=== PATIENT | male | born 1985 | race American Indian/Alaskan Native ===

== ENCOUNTER 2017-05-26 08:41 | Emergency (ER) | payer MEDICAID, OTHER ==
--- NOTE | 2017-05-26 09:23 | C.PDOC ---
History Of Present Illness 31 yr old male presents to the ER with complaints of right lower back molar pain for the past 1 week. Patient reports he is s/p root canal, states "it was never completed due to insurance reasons". Patient reports of temporary cap on tooth but states a piece broke off 1 week ago and now has persistent pain. Patient is also complaining of dysuria and perianal burning for the past several days. Admits to unprotected sex with anal sex and had similar STD concern on 10/2016, s/p Rocephin and Azithromax. Patient is concerned about STD with partner. Patient denies fever, throat swelling, mouth swelling, nausea, vomiting, abdominal pain, constipation, weakness or numbness. R BACK LOWER MOLAR PAIN X 1 WK. S/P ROOT CANAL "BUT IT WAS NEVER COMPLETED DUE TO INSURANCE REASONS". PT W TEMP CAP ON TOOTH, PIECE BROKE OFF 1 WEEK AGO NOW W PERSIST PAIN. NO SWELLING, FEVER. ALSO CO DYSURIA AND PERIANAL BURNING X SEV DAYS. +UNPROTECTED SEX W ANAL SEX. SIM STD CONCERN 10/2016 SP ROCEPHIN AND AZITHROMAX. PS +CONCERN FOR STD W PARTNER. NO LESIONS, DC. EXAM NAD HEENT +R 1 MOLAR W TEMP CAP, MISSING PIECE. NO ABSCESS. +LOCAL TEND. NO FACIAL SWELL CIRCUM NO LESIONS, DC. RECTAL EXT EXAM NO LESIONS, REDNESS. MDM UA, TX FOR STD. ADVISED NEED FOR STD CLINIC OR PMD FU FOR OTHER STD TESTING. SAFE SEX PRACTICES INSTRUCTED. ABX, PAIN RX FU DENTIST Time Seen by Provider: 05/26/17 09:22 Chief Complaint (Nursing): Dental Pain History Per: Patient History/Exam Limitations: no limitations Onset/Duration Of Symptoms: Days Past Medical History Reviewed: Historical Data, Nursing Documentation, Vital Signs Vital Signs: Last Vital Signs Temp 98.1 F 05/26/17 08:47 Pulse 69 05/26/17 08:47 Resp 14 05/26/17 08:47 BP 124/81 05/26/17 08:47 Pulse Ox 97 05/26/17 10:26 - Medical History PMH: Asthma, Sexually Transmitted Disease Family History: States: No Known Family Hx - Social History Hx Tobacco Use: No Hx Alcohol Use: Yes Hx Substance Use: No - Immunization History Hx Influenza Vaccination: No Review Of Systems Except As Marked, All Systems Reviewed And Found Negative. Constitutional: Negative for: Fever ENT: Positive for: Other ((+) Right lower molar pain ). Negative for: Mouth Swelling Gastrointestinal: Negative for: Nausea, Vomiting, Abdominal Pain, Constipation Genitourinary: Positive for: Dysuria, Other ((+) Perianal burning ) Neurological: Negative for: Weakness, Numbness Physical Exam - Physical Exam Appears: Non-toxic, No Acute Distress Skin: Warm, Dry, No Rash Head: Atraumatic, Normacephalic Ear(s): Bilateral: Normal Teeth: Other ((+) Right 1st molar with temporary cap, missing piece. Local tenderness. No facial swelling. No abscess. ) Throat: Normal, No Erythema, No Exudate, No Drooling Neck: Normal, Normal ROM, Supple Chest: Symmetrical, No Tenderness Cardiovascular: Rhythm Regular, No Murmur Respiratory: Normal Breath Sounds, No Rales, No Rhonchi, No Stridor, No Wheezing Gastrointestinal/Abdominal: Normal Exam, Soft, No Tenderness, No Guarding, No Rebound Rectal: Normal Exam, Other (No lesions. No redness. ) Male Genital: No Inguinal Tenderness, Circumcised, Other (No lesions. ) Extremity: Normal ROM, No Swelling Neurological/Psych: Oriented x3, Normal Speech, Normal Motor, Normal Sensation ED Course And Treatment O2 Sat by Pulse Oximetry: 97 (RA ) Pulse Ox Interpretation: Normal Progress - Re-Evaluation Re-evaluation Note: 05/26/17 09:25 [facility] NO NARC 05/2016 - Data Reviewed Data Reviewed: Old records - Continuity of Care Discussed pt. case with strategy planning consultant/specialty: Other ([facility]) Medical Decision Making Medical Decision Making: PLAN: * Chlamydia GC * Urinalysis * Rocephin IM NOTE: UA, treatment for STD. Patient is advised need to follow up with STD clinic or PMD for other STD testing. Safe sex practices instructed. Antibiotics and pain prescription and follow up with dentist. Disposition Counseled Patient/Family Regarding: Studies Performed, Diagnosis, Need For Followup, Rx Given - Disposition Referrals: [facility] [Outside] [facility] [Outside] YOUR,DENTIST/ STD CLINIC [Other] Disposition: HOME/ ROUTINE Disposition Time: 10:28 Condition: IMPROVED Prescriptions: Acetaminophen/Codeine [Tylenol/Codeine 300 MG/30 MG] 2 tab PO Q6H #20 tab Azithromycin 1 tab PO DAILY #4 tab Ibuprofen [Motrin] 600 mg PO Q6 #30 tab Penicillin VK [Pen-Vee K] 2 tab PO BID #28 tab Instructions: Sexually Transmitted Diseases (ED), Toothache (ED) Forms: Work Excuse - Clinical Impression Clinical Impression: Dysuria, Concern about STD in male without diagnosis, Dentalgia - Scribe Statement The provider has reviewed the documentation as recorded by the Ruba Moscoso Provider Attestation: All medical record entries made by the Ruba were at my direction and personally dictated by me. I have reviewed the chart and agree that the record accurately reflects my personal performance of the history, physical exam, medical decision making, and the department course for this patient. I have also personally directed, reviewed, and agree with the discharge instructions and disposition.
[2017-05-26] MEDS ORDERED: cefTRIAXone (Rocephin) 250 mg Inj IM STA (09:35)
[2017-05-26 09:57] LABS: URINE BILIRUBIN NEGATIVE (NEGATIVE); URINE BLOOD NEGATIVE (NEGATIVE); URINE CLARITY Clear (Clear); URINE COLOR Yellow (YELLOW); URINE GLUCOSE (UA) NORMAL (Normal); URINE LEUKOCYTE ESTERASE NEG Leu/uL (Negative); URINE NITRATE NEGATIVE (NEGATIVE); URINE PROTEIN NEGATIVE (NEGATIVE); URINE UROBILINOGEN NORMAL mg/dL (0.2-1.0)
[2017-05-26] MEDS ORDERED: cefTRIAXone 250 MG in Lidocaine Hydrochloride 0.9 ML IM ONE (10:00)
[2017-05-26 10:58] VITALS: BP 125/73; PULSE 62; RESP 20; TEMP 97.9; O2SAT 99
== END 2017-05-26 10:52 | disposition home or self-care (01) ==
LOC: C.ER 08:41
DX: K08.89 Other specified disorders of teeth and supporting structures (principal); R30.0 Dysuria
CPT/HCPCS: 81001; 87086; 87491; 87591; 96372; 99285; J0696

== ENCOUNTER 2018-05-25 12:02 | Emergency (ER) | payer OTHER ==
[2018-05-25 12:31] VITALS: PULSE 72; RESP 18
[2018-05-25] MEDS ORDERED: Sodium Chloride 0.9% 1,000 ML IV ONE (14:16)
[2018-05-25] MEDS ORDERED: Sodium Chloride 0.9% 1,000 ML ONE (14:28)
[2018-05-25 15:05] LABS: BASO % 0.7 % (0.0-2.0); EOS # 0.1 K/uL (0.0-0.7); EOS % 1.6 % (0.0-4.0); HEMOGLOBIN 12.2 g/dL (12.0-18.0); LYMPH # 2.2 K/uL (1.0-4.3); LYMPH % 30.6 % (20.0-40.0); MEAN CELL VOLUME 81.3 fL (80.0-94.0); MEAN CORPUSCULAR HEMOGLOBIN 27.1 pg (27.0-31.0); MEAN CORPUSCULAR HGB CONC 33.3 g/dL (33.0-37.0); MEAN PLATELET VOLUME 9.5 fL (7.2-11.7); MONO # 0.6 K/uL (0.0-0.8); MONO % 8.8 % (0.0-10.0); NEUT # 4.1 K/uL (1.8-7.0); NEUT % 58.3 % (50.0-75.0); NRBC % 0.1 % (0.0-2.0); RBC 4.51 Mil/uL (4.40-5.90)
[2018-05-25 15:16] LABS: ALB/GLOB RATIO 1.1 (1.0-2.1); ALBUMIN 4.2 g/dL (3.5-5.0); ALT/SGPT 20 U/L (21-72); AST/SGOT 18 U/L (17-59); BLOOD UREA NITROGEN 9 mg/dL (9-20); GFR AFRICAN-AMERICAN > 60; GFR NON-AFRICAN AMERICAN > 60
[2018-05-25 15:26] LABS: URINE BILIRUBIN NEGATIVE (NEGATIVE); URINE BLOOD NEGATIVE (NEGATIVE); URINE CLARITY Clear (Clear); URINE COLOR Yellow (YELLOW); URINE GLUCOSE (UA) NORMAL (Normal); URINE LEUKOCYTE ESTERASE NEG Leu/uL (Negative); URINE PROTEIN NEGATIVE (NEGATIVE); URINE UROBILINOGEN NORMAL mg/dL (0.2-1.0)
[2018-05-25] MEDS ORDERED: cefTRIAXone (Rocephin) 250 mg Inj IM STA (15:48)
--- NOTE | 2018-05-25 16:13 | C.PDOC ---
History Of Present Illness Pt c/o burning upon urinating and burning in rectal area. Pt practices receptive anal intercourse. Time Seen by Provider: 05/25/18 13:54 Chief Complaint (Nursing): Medical Clearance History Per: Patient Onset/Duration Of Symptoms: Days Current Symptoms Are (Timing): Still Present Severity: Moderate Additional History Per: Prior Records Past Medical History Reviewed: Historical Data, Nursing Documentation, Vital Signs Vital Signs: Last Vital Signs Temp 98.7 F 05/25/18 12:27 Pulse 72 05/25/18 12:27 Resp 18 05/25/18 12:27 BP 111/74 05/25/18 12:27 Pulse Ox 97 05/25/18 12:27 - Medical History PMH: Asthma, HIV, Sexually Transmitted Disease Surgical History: No Surg Hx Family History: States: Unknown Family Hx - Social History Hx Tobacco Use: No Hx Alcohol Use: Yes Hx Substance Use: No - Immunization History Hx Influenza Vaccination: No Review Of Systems Except As Marked, All Systems Reviewed And Found Negative. Constitutional: Negative for: Fever, Weakness Cardiovascular: Negative for: Chest Pain Respiratory: Negative for: Shortness of Breath Gastrointestinal: Positive for: Constipation, Hematochezia (?), Rectal Pain. Negative for: Vomiting Genitourinary: Positive for: Dysuria Musculoskeletal: Negative for: Neck Pain, Back Pain Skin: Negative for: Rash Neurological: Negative for: Weakness, Numbness Physical Exam - Physical Exam Appears: Non-toxic, No Acute Distress Skin: Normal Color, Warm, Dry, No Rash Head: Atraumatic, Normacephalic Eye(s): bilateral: Normal Inspection, PERRL, EOMI Neck: Normal ROM, Supple Cardiovascular: Rhythm Regular Respiratory: Normal Breath Sounds, No Accessory Muscle Use Gastrointestinal/Abdominal: Soft, No Tenderness, No Distention Rectal: Rectal Tone (wnl), No Mass, Tenderness, Other (No blood) Back: No CVA Tenderness Male Genital: Normal Inspection, No Testicular Swelling, Circumcised Extremity: Normal ROM Neurological/Psych: Oriented x3, Normal Motor, Normal Sensation ED Course And Treatment - Laboratory Results Result Diagrams: 05/25/18 14:57 05/25/18 14:57 Lab Interpretation: No Acute Changes O2 Sat by Pulse Oximetry: 97 Pulse Ox Interpretation: Normal Progress Note: Pt will be treated for urethritis/proctitis with Rocephin 250mg IM and Zithromax 1g po. Disposition Counseled Patient/Family Regarding: Studies Performed, Diagnosis, Need For Followup - Disposition Referrals: [facility] [Outside] Disposition: HOME/ ROUTINE Disposition Time: 16:16 Condition: STABLE Additional Instructions: Follow up in the clinic within 1 week for further evaluation and treatment. Return to the ER if you develop fever, vomiting, worsening of symptoms or if you have any other concerns. Instructions: Urethritis (DC) - Clinical Impression Clinical Impression: Urethritis, Proctitis
[2018-05-25 16:30] VITALS: BP 121/81; TEMP 98.6; O2SAT 99
== END 2018-05-25 16:28 | disposition home or self-care (01) ==
LOC: C.ER 12:02
DX: N34.2 Other urethritis (principal); K62.89 Other specified diseases of anus and rectum
CPT/HCPCS: 80053; 81001; 83735; 85025; 87086; 87491; 87591; 96360; 96372; 99285; J0696; J7030